=== PATIENT | male | born 1940 | race Caucasian/White ===

== ENCOUNTER 2017-02-27 08:41 | Emergency (ER) | payer MEDICARE, MEDICAID ==
[2017-02-27 08:44] VITALS: TEMP 98
--- NOTE | 2017-02-27 09:18 | C.PDOC ---
History Of Present Illness 76 year old male presents to the ED with complaints of left knee pain exacerbated with movement. Patient states he was jogging yesterday and began to limp after the first lap. He also notes he jogs and goes to the gym afterward three times a week and denies any medical problems and is not taking any medications. Patient denies falling, nausea, or vomiting. Time Seen by Provider: 02/27/17 09:12 Chief Complaint (Nursing): Lower Extremity Problem/Injury History Per: Patient History/Exam Limitations: no limitations Onset/Duration Of Symptoms: Days (1 day ) Current Symptoms Are (Timing): Still Present Severity: Mild Pain Scale Rating Of: 4 Recent travel outside of the [place]: No - Ankle/Foot Description Of Injury: denies: Fell, Struck With Object, Struck Against Object, Laceration Currently Unable To: Other (pain with movement and bending of the knee ) Past Medical History Reviewed: Historical Data, Nursing Documentation, Vital Signs Vital Signs: Last Vital Signs Temp 98 F 02/27/17 08:43 Pulse 81 02/27/17 10:51 Resp 16 02/27/17 10:51 BP 123/79 02/27/17 10:51 Pulse Ox 98 02/27/17 10:51 Family History: States: Unknown Family Hx - Social History Hx Tobacco Use: No Hx Alcohol Use: No Hx Substance Use: No - Immunization History Hx Tetanus Toxoid Vaccination: No Hx Influenza Vaccination: No Review Of Systems Constitutional: Negative for: Fever, Chills, Sweats Cardiovascular: Negative for: Chest Pain, Palpitations Respiratory: Negative for: Cough, Shortness of Breath Gastrointestinal: Negative for: Nausea, Vomiting, Abdominal Pain, Diarrhea Musculoskeletal: Positive for: Other (left knee pain ) Skin: Negative for: Bruising Physical Exam - Physical Exam Appears: Non-toxic, No Acute Distress Skin: Warm, Dry Head: Atraumatic Oral Mucosa: Moist Neck: Supple Chest: Symmetrical, No Deformity Cardiovascular: Rhythm Regular Respiratory: No Rales, No Rhonchi, No Stridor, No Wheezing Extremity: Tenderness (tenderness to the medial aspect of the left knee ), No Calf Tenderness, Capillary Refill (good capillary refill), No Swelling, Other ( No laxity of the right knee and negative Drawer test. Left knee is stable ) ED Course And Treatment O2 Sat by Pulse Oximetry: 95 (room air ) - Other Rad Left Knee X-Ray X-Ray: Viewed By Me, Read By Radiologist Interpretation: IMPRESSION: Mild tricompartmental degenerative osteoarthrosis, worse in the medial compartment. Small suprapatellar joint effusion. Disposition Counseled Patient/Family Regarding: Studies Performed, Diagnosis, Need For Followup, Rx Given - Disposition Referrals: Marcial Beckman III, MD [Staff Provider] - [facility] [Outside] Disposition: HOME/ ROUTINE Disposition Time: 10:34 Condition: STABLE Prescriptions: Ibuprofen [Motrin] 600 mg PO TID #15 tab Instructions: Knee Sprain (ED), Knee Immobilizer (ED) Forms: General Discharge Instructions, [facility] (Macedonian) - POA Present On Arrival: None - Clinical Impression Clinical Impression: Left knee sprain - Scribe Statement The provider has reviewed the documentation as recorded by the Scribe Gina Bates All medical record entries made by the Scribe were at my direction and personally dictated by me. I have reviewed the chart and agree that the record accurately reflects my personal performance of the history, physical exam, medical decision making, and the department course for this patient. I have also personally directed, reviewed, and agree with the discharge instructions and disposition.
[2017-02-27 10:52] VITALS: BP 123/79; PULSE 81; RESP 16
--- NOTE | 2017-02-27 11:40 | RAD ---
PROCEDURE: Left Knee Radiographs. HISTORY: Pain. COMPARISON: None. FINDINGS: BONES: Normal. No acute fracture. JOINTS: There is mild tricompartmental degenerative osteoarthrosis with mild reduced joint spaces, marginal spurring and tibial spiking, worse in the medial compartment. JOINT EFFUSION: There is a small suprapatellar joint effusion. OTHER FINDINGS: None. IMPRESSION: Mild tricompartmental degenerative osteoarthrosis, worse in the medial compartment. Small suprapatellar joint effusion.
[2017-02-27 12:02] VITALS: O2SAT 95
== END 2017-02-27 10:51 | disposition home or self-care (01) ==
LOC: C.ER 08:41
DX: S83.92XA Sprain of unspecified site of left knee, initial encounter (principal); X50.3XXA Overexertion from repetitive movements, initial encounter; Y93.02 Activity, running; Y92.410 Unspecified street and highway as the place of occurrence of the external cause